=== PATIENT | female | born 1970 | race Two or more races ===

== ENCOUNTER 2021-02-08 19:06 | Emergency (ER) | payer MEDICAID, OTHER ==
[~2021-02-08] VITALS: Ht 162.6 cm; Wt 75.3 kg
[2021-02-08 22:00] VITALS: BP 147/92
[2021-02-08] MEDS ORDERED: HYDROcodone-ACET 10/325MG TAB PO ONE (22:30)
[2021-02-08] MEDS ORDERED: IBUPROFEN 800 MG TAB PO ONE (22:30)
== END 2021-02-08 22:53 | disposition home or self-care (01) ==
LOC: ER 19:06
DX: S52.515A Nondisplaced fracture of left radial styloid process, initial encounter for closed fracture (principal); S43.402A Unspecified sprain of left shoulder joint, initial encounter; I10 Essential (primary) hypertension; E78.5 Hyperlipidemia, unspecified; Z90.49 Acquired absence of other specified parts of digestive tract; Z90.710 Acquired absence of both cervix and uterus; Z88.8 Allergy status to other drugs, medicaments and biological substances; W19.XXXA Unspecified fall, initial encounter; Y93.89 Activity, other specified; Y92.89 Other specified places as the place of occurrence of the external cause; Y99.8 Other external cause status
CPT/HCPCS: 73030; 73110